=== PATIENT | male | born 1980 ===

== ENCOUNTER 2024-08-26 06:10 | Day surgery (SDC) | payer OTHER ==
[2024-08-24 09:49] VITALS: BP 140/90
[2024-08-24 10:20] LABS: PH,URINE 5.5 (5.0-8.0); URINE APPEARANCE Clear; URINE BILIRRUBIN Negative (NEGATIVE); URINE BLOOD Negative; URINE COLOR Yellow; URINE GLUCOSE Negative (NEGATIVE); URINE KETONE Negative (NEGATIVE); URINE LEUKOCYTE Negative; URINE NITRATE Negative; URINE PROTEIN Negative (NEGATIVE); URINE UROBILINOGEN 0.2 E.U./dl
[2024-08-24 10:22] LABS: HEMATOCRIT 43.7 % (39.0-48.0); HEMOGLOBIN 14.9 g/dL (13-16.00); MEAN CELL VOLUME 95.9 fL (80.0-100.00); MEAN CORPUSCULAR HEMOGLOBIN 32.7 pg (27.00-32.0); MEAN CORPUSCULAR HGB CONC 34.1 g/dl (32.0-36.0); RED BLOOD COUNT 4.55 M/uL (4.00-6.00); RED CELL DISTRIBUTION WIDTH 13.6 % (11.5-14.5); URINE BACTERIA 8.5 uL (0.0-1933)
[2024-08-24 10:23] LABS: PLATELET COUNT 181 K/uL (150-450)
[2024-08-24 10:25] LABS: URINE EPITHELIAL CELLS 1.2 uL (0.0-38.8); URINE RBC 0.4 uL (0.0-20.8); URINE WBC 0.9 uL (0.0-23.2)
[2024-08-24 10:41] LABS: PARTIAL THROMBOPLASTIN TIME 28.2 SECONDS (22.0-34.0); PROTHROMBIN TIME 10.9 SECONDS (9.0-11.5)
[2024-08-24 11:04] LABS: CALCIUM 9.1 mg/dL (8.5-10.1); CREATININE SERUM 0.94 mg/dL (0.70-1.30); GFR 87.18; POTASSIUM 4.31 mEq/L (3.5-5.1)
[~2024-08-26] VITALS: Ht 180.3 cm; Wt 95.3 kg
[2024-08-26] MEDS ORDERED: BUPIVACAINE HCL 30 ML VIAL IJ ONE (10:15)
[2024-08-26] MEDS ORDERED: METRONIDAZOLE/SODIUM CHLORIDE 500 MG/100 ML PIGGYBACK IV ONE (10:15)
[2024-08-26] MEDS ORDERED: ENOXAPARIN SODIUM 40 MG/0.4 ML SYRINGE SUBCUTANEO ONE (10:15)
[2024-08-26] MEDS ORDERED: CEFTRIAXONE SODIUM 2,000 MG VIAL IV ONE (10:15)
[2024-08-26] MEDS ORDERED: POLY119PG PO (12:05)
[2024-08-26] MEDS ORDERED: PERCOCET 5-3251 EACH PO (12:05)
[2024-08-26] MEDS ORDERED: CELEBREX200MG PO (12:05)
[2024-08-26] MEDS ORDERED: NEURONTIN300 MG PO (12:05)
[2024-08-26] MEDS ORDERED: MORPHINE SULFATE 4 MG/ML VIAL IV ONE ×2 (12:45→13:45)
== END 2024-08-26 16:00 | disposition home or self-care (01) ==
LOC: CIR.AMB 06:10
PROVIDERS: ATTEND Surgery
DX: K40.91 Unilateral inguinal hernia, without obstruction or gangrene, recurrent (principal); Z91.013 Allergy to seafood
CPT/HCPCS: 49651; C1781